=== PATIENT | female | born 2005 | race Caucasian/White ===

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

== ENCOUNTER 2024-03-29 16:49 | Emergency (ER) | payer OTHER, MEDICAID, SELFPAY ==
[2024-03-29 16:54] VITALS: BP 114/67; PULSE 95; RESP 16; TEMP 36.7; O2SAT 96; BMI 32.2
--- NOTE | 2024-03-29 17:24 | ED.GENADULT ---
HPI - General Adult General Chief complaint: Diarrhea Stated complaint: blood in stool Time Seen by Provider: 03/29/24 16:50 History of Present Illness HPI narrative: This 18-year-old female comes in with her mother and her son who is about 8-month-old. The patient comes in because of bright red blood in the toilet occurring over the past couple days. She does not report any obvious constipation prior to this. She has not had any fevers or recent travel. She does not report any abdominal pain, fever, lightheadedness, or shortness of breath. She states that she does have some occasions where there is a little bit of bright red blood streaking her stool and this is been going on for more than a year at least. Related Data Previous Rx's ?Medication ?Instructions ?Recorded triamcinolone acetonide 0.1 % 1 applic topical QDAY #15 grams 12/25/23 topical ointment venlafaxine 37.5 mg 112.5 mg (3 x 37.5 mg) PO QDAY #90 01/16/24 capsule,extended release 24 hr caps dextroamphetamine-amphetamine 10 10 mg PO BID #60 tabs 01/28/24 mg tablet (Adderall) Allergies Allergy/AdvReac Type Severity Reaction Status Date / Time sertraline Allergy Intermediate Verified 03/29/24 16:53 Review of Systems Status of ROS: Reports: 10 or more systems reviewed and unremarkable except as noted in History and below Narrative: Constitutional: No fevers, no weight gain or loss. Eyes: No discharge. No vision changes. HENT: No congestion, no sore throat, no ear pain. Cardiovascular: No chest pain, no palpitations. Respiratory: No shortness of breath, no wheezes, no cough. Gastrointestinal: No abdominal pain, no vomiting, no diarrhea. Bright red blood in the toilet as described above. Genitourinary: No dysuria, no hematuria. Musculoskeletal: Normal range of motion. Skin: No rashes, no pruritis. Neurological: No dizziness, weakness, sensory change, speech change. Endo/Heme/Allergies: No bruising or bleeding. No polydipsia. Pysch: no suicidality, no anxiety, no insomnia. All other systems reviewed and are negative. [facility] Medical History (Updated 03/29/24 @ 17:29 by Michael Kay MD) Rash ?R21 - Rash and other nonspecific skin eruption (ICD-10) cardiac arrhythmia Insufficient care ?O09.30 - Supervision of with insufficient care, unspecified trimester (ICD-10) Constipation during ?O99.619 - Diseases of the digestive system complicating , unspecified trimester (ICD-10) ?K59.00 - Constipation, unspecified (ICD-10) Nausea and vomiting of , antepartum ?O21.9 - Vomiting of , unspecified (ICD-10) TMJ (dislocation of temporomandibular joint) ?S03.00XA - Dislocation of jaw, unspecified side, initial encounter (ICD-10) Surgical History History of tonsillectomy ?Z90.89 - Acquired absence of other organs (ICD-10) Family History (Updated 06/26/23 @ 13:12 by Lena Hooks MD) Other Alcohol dependence Asthma Depression Social History (Updated 06/26/23 @ 13:13 by Lena Hooks MD) Narrative: Lives in [place] with her boyfriend and his parents. Her mother lives in [place]. Her dad lives in [place]. What is your current living situation?: I presently have a place to live Problems where you live: no known problems In the past 12 months, utilities in danger of being shut off: no In past 12 months, lack of transportation kept you from medical appts, meetings, work, or getting things needed for daily living: no In the past 12 mos, have been you worried that your food would run out before you had money to buy more?: never true In the past 12 mos, the food you bought just didn't last and you didn't have money to buy more?: never true Smoking Status: Never smoker Do you use any of these nicotine containing products: None Second hand tobacco smoke exposure: No How often do you have a drink containing alcohol: never AUDIT-C Alcohol total score: 0 Non-prescribed substance use: denies use Caffeine: No How often does anyone, including family, friends and others, physically hurt you: never How often does anyone, including family, friends and others, insult or talk down to you: never How often does anyone, including family, friends and others, threaten you with harm: never How often does anyone, including family, friends and others, scream or curse at you: never Little interest or pleasure in doing things: not at all Feeling down, depressed, or hopeless: not at all Are you using contraception or practicing any form of control: Yes service: No Exam Narrative: Exam Narrative: Constitutional: Well-developed, well-nourished, no acute distress. HEENT: Normocephalic, atraumatic. Neck: Normal range of motion. Nontender. Supple. Heart: Regular. No murmurs. Normal rate. Intact distal pulses. Lungs: Clear to auscultation. No chest discomfort. No wheezes, rhonchi, or rales. Abdomen: Normal bowel sounds. Nontender. No rebound tenderness. Genitalia: Deferred. Back: No midline tenderness. Normal range of motion. Extremities: Normal range of motion. No injury. Skin: Intact. No rash. Warm. No erythema or pallor. Neurologic: No altered sensation. No weakness. Alert and oriented. Psychiatric: No suicidality. No anxiety or depression. No insomnia. Nursing notes and vitals signs are reviewed. Const: Vital Signs, click to edit/add: Vital Signs - 24 hr 03/29/24 16:54 Temperature 98.1 F Pulse Rate [Pulse Oximeter] 95 Respiratory Rate 16 Blood Pressure [Ri ght Upper Arm] 114/67 Pulse Oximetry 96 Oxygen Delivery Me thod Room Air Course Vital Signs Vital signs: Initial Vital Signs Temperature 98.1 F 03/29/24 16:54 Temperature Source Temporal Artery Scan 03/29/24 16:54 Pulse Rate 95 03/29/24 16:54 Pulse Rhythm Regular 03/29/24 16:54 Respiratory Rate 16 03/29/24 16:54 Blood Pressure 114/67 03/29/24 16:54 Blood Pressure Mean 82 03/29/24 16:54 Blood Pressure Position Sitting 03/29/24 16:54 Pulse Oximetry 96 03/29/24 16:54 Oxygen Delivery Method Room Air 03/29/24 16:54 Vital Signs Temperature 98.1 F 03/29/24 16:54 Pulse Rate 95 03/29/24 16:54 Respiratory Rate 16 03/29/24 16:54 Blood Pressure 114/67 03/29/24 16:54 Pulse Oximetry 96 03/29/24 16:54 Oxygen Delivery Method Room Air 03/29/24 16:54 Temperature 98.1 F 03/29/24 16:54 Pulse Rate 95 03/29/24 16:54 Respiratory Rate 16 03/29/24 16:54 Blood Pressure 114/67 03/29/24 16:54 Pulse Oximetry 96 03/29/24 16:54 Oxygen Delivery Method Room Air 03/29/24 16:54 Medical Decision Making MDM Narrative Medical decision making narrative: This patient comes in because of blood in the toilet per rectum over the past couple days. She states that she feels normal and does not have any pain, fever, lightheadedness, or shortness of breath. She does not have any family history of colon problems. She arrives here with normal vital signs and normal exam. I did offer labs, anoscopy, and imaging studies which the patient declined for now. I stated the best assessment is a direct look with flexible sigmoidoscopy or colonoscopy. I did recommend that she arrange an appointment for this kind of study. Most likely this bleeding is coming from hemorrhoids or possibly an anal fissure. I did describe signs and symptoms that would indicate a need for her to return here for further evaluation and treatment. Discharge Plan Discharge Clinical Impression: Bright red rectal bleeding Patient Disposition: Home, Self-Care Condition: Stable Additional Instructions: Take fiber additives daily to keep stool soft. Follow up with clinic for a flexible sigmoidoscopy or colonoscopy. Return if worsening symptoms occur such as fever, lightheadedness, shortness of breath, or persistent bleeding. Prescriptions: No Action venlafaxine 37.5 mg capsule,extended release 24hr 112.5 mg PO QDAY Qty: 90 11RF dextroamphetamine-amphetamine [Adderall] 10 mg tablet 10 mg PO BID Qty: 60 0RF Rx Instructions: administer doses at least 4-6 hours apart triamcinolone acetonide 0.1 % ointment 1 applic topical QDAY Qty: 15 1RF Follow Up/Referrals: Mikel Vail MD [Primary Care Provider] - Stand Alone Forms: [facility] Info Instructions
--- OUTSIDE RECORDS SUMMARY | 2024-03-29 17:33 | XMS_ITS | Continuity of Care Document ---
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 Social History Type Response Date Comment Sourc e This section is an empty social history section. [facility]
--- OUTSIDE RECORDS SUMMARY | 2024-03-29 17:33 | XMS_ITS | Clinical Summary ---
Author Organization [facility] Address [address] [place] [address] Care Team Providers Care Claim Approver Name Role Phone Dariusnovember Primary Care Provider [phone] Social History Tobacco Use Types Packs/Day Years Used Date Smoking Tobacco: Never Assessed Adolescent Education Answer Date Record ed Getting School Help Needed Not on file 05/19 Sex and Gender Information Value Date Recorded Sex Assigned at Not on file Gender Identity Not on file Sexual Orientation Not on file Plan of Treatment Health Maintenance Due Date Last Done Comments ADVANCE CARE PLANNING 2004 ANNUAL REVIEW OF HM ORDERS 2004 YEARLY PREVENTIVE VISIT 2004 Pneumococcal Vaccine: Pediatrics (0 to 5 Years) and At-Risk Patients (6 to 64 Years) (1 of 2 - PCV) 2010 08/03/2005, 03/13/2005, 2004, Additional history exists HPV IMMUNIZATION (1 - 3-dose series) 2019 COVID-19 Vaccine ( - 2022-24 season) 2023 PHQ-2 (once per calendar year) 2023 CHLAMYDIA SCREENING 12/05/2023 12/04/2022 INFLUENZA VACCINE (#1) 2024 1, 07/31/2011, 07/02/2007, Additional history exists DTAP/TDAP/TD IMMUNIZATION (8 - Td or Tdap) 05/10/2033 05/10/2023, 09/07/2015, 11/12/2009, Additional history exists HEPATITIS B IMMUNIZATION Completed 005, 2004, 2004 HIB IMMUNIZATION Completed 10/12/2006, , 2004, Additional history exists IPV IMMUNIZATION Completed 11/12/2009, , 03/13/2005, Additional history exists VARICELLA IMMUNIZATION Completed 11/12/2009, 2006 MENINGITIS IMMUNIZATION Completed 07/01/20, 09/07/2015, 09/07/2015 HEPATITIS C SCREENING Completed 12/04/2022 HIV SCREENING Completed 12/04/2022 RSV MONOCLONAL ANTIBODY Aged Out No l onger eligible based on patient's age to complete this topic Procedures Procedure Name Priority Date/Time Associated Diagnosis Comments ABSTRACT HIV Routine 12/04/2022 1:51 PM CDT HEPATITIS C (HIM EXTERNAL RESULT) Routine 12/04/2022 1:51 PM CDT CHLAMYDIA TRACHOMATIS PCR (EXTERNAL RESULT) Routine 12/04/2022 1:08 PM CDT from Last 3 Months or Most Recently Relevant to Health Maintenance Results * ABSTRACT HIV (12/04/2022 1:51 PM CDT) HIV 1&2 EXT See Scanned Document [facility] Blood 12/04/2022 1:51 PM CDT [facility] - 12/04/2022 1:51 PM CDT Lab Result [facility] Provider Outside LAB - HIM EXTERNAL R ESULT [address] [phone] * Hepatitis C (HIM External Result) (12/04/2022 1:51 PM CDT) Hep C HIM See Scanned Document [facility] 12/04/2022 1:51 PM CDT [facility] - 12/04/2022 1:51 PM CDT Lab Result [facility] Provider Outside LAB - HIM EXTERNAL R ESULT [facility] [address] [place], [place] [address] [phone] * Chlamydia Trachomatis PCR (External Result) (12/04/2022 1:08 PM CDT) Specimen Description Swab [facility] Chlamydia Trachomatis PCR Not Detected Negative [facility] 12/04/2022 1:08 PM CDT Narrative [facility] - 12/04/2022 1:08 PM CDT Lab Result [facility] Provider Outside LAB - HIM EXTERNAL R ESULT [facility] [address] [place], [place] [address] [phone] from Last 3 Months or Most Recently Relevant to Health Maintenance Care Teams Claim Approver Relationship Specialty Start Date End Date November [facility] [address] [id number] PCP - General Physician Irrigator Valve Pipe 05/25/23
--- OUTSIDE RECORDS SUMMARY | 2024-03-29 17:33 | XMS_ITS | Referral Summary ---
Author Organization [facility] Address [address] [place] [address]. 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 Name Role Phone November Primary Care Provider [phone] Social History Tobacco Use Types Packs/Day Years Used Date Smoking Tobacco: Never Assessed Adolescent Education Answer Date Record ed Getting School Help Needed Not on file 05/19 Sex and Gender Information Value Date Recorded Sex Assigned at Not on file Gender Identity Not on file Sexual Orientation Not on file Plan of Treatment Not on file Procedures Procedure Name Priority Date/Time Associated Diagnosis Comments ABSTRACT HIV Routine 12/04/2022 1:51 PM CDT HEPATITIS C (HIM EXTERNAL RESULT) Routine 12/04/2022 1:51 PM CDT CHLAMYDIA TRACHOMATIS PCR (EXTERNAL RESULT) Routine 12/04/2022 1:08 PM CDT from Last 3 Months or Most Recently Relevant to Health Maintenance Results * ABSTRACT HIV (12/04/2022 1:51 PM CDT) HIV 1&2 EXT See Scanned Document [facility] Blood 12/04/2022 1:51 PM CDT Narrative [facility] - 12/04/2022 1:51 PM CDT Lab Result [facility] Provider Outside LAB - HIM EXTERNAL R ESULT [facility] [address] [place], [place] [address] [phone] * Hepatitis C (HIM External Result) (12/04/2022 1:51 PM CDT) Hep C HIM See Scanned Document [facility] 12/04/2022 1:51 PM CDT [facility] - 12/04/2022 1:51 PM CDT Lab Result [facility] Provider Outside LAB - HIM EXTERNAL R ESULT [facility] [address] [place], [place] [address] [phone] * Chlamydia Trachomatis PCR (External Result) (12/04/2022 1:08 PM CDT) Specimen Description Swab [facility] Chlamydia Trachomatis PCR Not Detected Negative [facility] 12/04/2022 1:08 PM CDT [facility] - 12/04/2022 1:08 PM CDT Lab Result [facility] Provider Outside LAB - [facility] EXTERNAL R ESULT [facility] [address] [phone] from Last 3 Months or Most Recently Relevant to Health Maintenance Care Teams Lead Laying And Gluing Machine Operator Relationship Specialty Start Date End Date November [facility] [address] [place] [id number] PCP - General Physician Network Internship 05/25/23
== END 2024-03-29 17:34 | disposition home or self-care (01) ==
LOC: ED 17:31
PROVIDERS: Emergency Provider Emergency Medicine Emergency Medical Services; PCP Internal Medicine
DX: K62.5 Hemorrhage of anus and rectum (principal)
CPT/HCPCS: 99283; 99284

== ENCOUNTER 2024-12-11 14:39 | Outpatient (CLI) | payer OTHER, MEDICAID, SELFPAY | END 2024-12-11 14:40 | disposition home or self-care (01) | PROVIDERS: PCP Internal Medicine; Visit Provider Internal Medicine | DX: R23.3 Spontaneous ecchymoses (principal); Z13.79 Encounter for other screening for genetic and chromosomal anomalies | CPT/HCPCS: 80053; 81241; 84443; 85610; 85730 ==